=== PATIENT | male | born 1970 | race Caucasian/White ===

== ENCOUNTER → 2020-11-29 | Outpatient (CLI) | payer BC ==
[2020-12-02 20:09] LABS: TESTOSTERONE, SERUM 218 ng/dL (264-916)
== END ==
LOC: LAB 08:51
PROVIDERS: Urology
DX: Z12.5 Encounter for screening for malignant neoplasm of prostate (principal); R79.89 Other specified abnormal findings of blood chemistry
CPT/HCPCS: 36415; 84146; 84153; 84402; 84403